=== PATIENT | male | born 1990 | race Caucasian/White ===

== ENCOUNTER 2021-03-17 10:59 | Outpatient (REF) | payer OTHER, SELFPAY ==
[2021-03-17 11:58] LABS: COVID-19 Test Negative (Negative)
== END 2021-03-17 11:00 | disposition home or self-care (01) ==
LOC: HO.LAB 10:59
PROVIDERS: Visit Provider Internal Medicine
DX: Z20.822 Contact with and (suspected) exposure to COVID-19 (principal)
CPT/HCPCS: 36415; 87635; C9803

== ENCOUNTER 2021-05-06 11:18 | Outpatient (REF) | payer OTHER, SELFPAY | END 2021-05-06 11:19 | disposition home or self-care (01) | LOC: HO.LAB 11:18 | PROVIDERS: Visit Provider Internal Medicine | DX: Z20.822 Contact with and (suspected) exposure to COVID-19 (principal) | CPT/HCPCS: C9803; U0003; U0005 ==

== ENCOUNTER 2021-11-11 12:45 | Outpatient (REF) | payer OTHER, SELFPAY ==
[2021-11-11 15:18] LABS: COVID-19 Test Negative (Negative)
== END 2021-11-11 12:46 | disposition home or self-care (01) ==
LOC: HO.LAB 12:45
PROVIDERS: Visit Provider Internal Medicine
DX: Z20.822 Contact with and (suspected) exposure to COVID-19 (principal)
CPT/HCPCS: 36415; 87635; C9803

== ENCOUNTER 2022-02-06 12:00 | Outpatient (REF) | payer OTHER, SELFPAY ==
[2022-02-06 12:32] LABS: COVID-19 Test Negative (Negative)
== END 2022-02-06 12:01 | disposition home or self-care (01) ==
LOC: HO.LAB 12:00
PROVIDERS: Visit Provider Internal Medicine
DX: Z20.822 Contact with and (suspected) exposure to COVID-19 (principal)
CPT/HCPCS: 87635; C9803

== ENCOUNTER 2022-08-23 12:03 | Outpatient (REF) | payer SELFPAY ==
[2022-08-23 12:42] LABS: COVID-19 Test Negative (Negative); IDNOW Serial# 9DB6401D
== END 2022-08-23 12:04 | disposition home or self-care (01) ==
LOC: HO.LAB 12:03
PROVIDERS: Visit Provider Internal Medicine
DX: Z20.822 Contact with and (suspected) exposure to COVID-19 (principal)
CPT/HCPCS: 87635; C9803